=== PATIENT | female | born 1985 | race Caucasian/White ===

== ENCOUNTER 2016-11-23 16:37 | Emergency (ER) | payer OTHER ==
[~2016-11-23 16:37] MED LIST: AMOXIL500 MG PO; AURALGAN EAR DR14 ML OT; BACTRIM DS TABL1 TA1; BACTRIM DS TABL1 TA1 PO; BACTRIM DS TABL1 TAB PO; BACTROBAN15 GM; CIPRO PO; CORTISPORI10 ML OTIC AD; DICLOFENAC; DICLOFENAC PO; DOXYCYCLINE HY100 M3 PO; FLEXERIL10 MG PO; IBUPROFEN; MEDROL4 MG/DOSE- PO; MOTRIN600 MG PO; MUPIROCIN0.9 GM EXT; NO MEDICATIONS; PHENERGAN PO; TYLENOL COLD SE1 TAB PO; VICODIN PO; VOLTAREN75 MG PO
== END 2016-11-23 17:42 | disposition left against medical advice (07) ==
LOC: SED 16:37
DX: L02.413 Cutaneous abscess of right upper limb (principal); F17.200 Nicotine dependence, unspecified, uncomplicated
CPT/HCPCS: 99283